=== PATIENT | female | born 1935 | race Caucasian/White ===

== ENCOUNTER 2023-11-01 17:56 | Inpatient (IN) | payer MEDICARE, MEDICAID ==
[~2023-11-01] VITALS: Ht 165.1 cm; Wt 64.4 kg
[2023-11-01 18:23] VITALS: BP 114/67; PULSE 84; RESP 20; TEMP 97.9; O2SAT 96
[2023-11-01 19:44] LABS: BASOPHILS % (AUTO) 0.3 % (0.0-2.0); EOSINOPHILS % (AUTO) 0.1 % (0.0-4.0); HEMOGLOBIN 12.5 g/dL (12.0-16.0); LYMPHOCYTES # (AUTO) 0.7 K/uL (2.5-16.5); LYMPHOCYTES % (AUTO) 9.4 % (20.5-51.1); MEAN CORPUSCULAR HEMOGLOBIN 32 pg (27-31); MEAN CORPUSCULAR HGB CONC 33 g/dL (33-37); MEAN CORPUSCULAR VOLUME 97.9 fL (80-94); MONOCYTES # (AUTO) 0.6 K/uL (0.8-1.0); MONOCYTES % (AUTO) 7.4 % (1.7-9.3); NEUTROPHILS # (AUTO) 6.5 K/uL (1.8-7.7); NEUTROPHILS % (AUTO) 82.8 % (42.2-75.2); PLATELET COUNT (AUTO) 225 K/uL (140-450); RED BLOOD CELL COUNT(AUTO) 3.88 MIL/uL (4.20-5.40); RED CELL DISTRIBUTION WIDTH 15.6 % (11.6-13.7); WHITE BLOOD COUNT (AUTO) 7.9 K/uL (4.8-10.8)
[2023-11-01] MEDS: NACL 0.9% 1,000 ML IV ONE (19:56)
[2023-11-01 20:30] LABS: INR 0.9 (0.8-1.2); PARTIAL THROMBOPLASTIN TIME 22.5 secs (22-35.6); PROTHROMBIN TIME 9.5 secs (10.8-13.4)
[2023-11-01 20:32] LABS: ANION GAP 15.7 (8-16); CALCIUM 8.5 mg/dL (8.5-10.1); CHLORIDE 99 mmol/L (98-107); GLUCOSE 137 mg/dL (74-106); POTASSIUM 3.7 mmol/L (3.5-5.1); SODIUM SERUM 137 mmol/L (136-145); UREA NITROGEN, BLOOD 22 mg/dL (7-18)
[2023-11-01 20:43] LABS: ALANINE AMINOTRANSFERASE 323 U/L (12-78); ALBUMIN 3.1 g/dL (3.4-5.0); ALKALINE PHOSPHATASE 124 U/L (50-136); ASPARTATE AMINOTRANSFERASE 438 U/L (15-37); BILIRUBIN,DIRECT 0.3 mg/dL (0.0-0.3); CREATINE KINASE, TOTAL 706 U/L (26-192); THYROID STIMULATING HORMONE 3.79 uIU/mL (0.34-3.74)
[2023-11-01 20:47] LABS: TOTAL BILIRUBIN 0.8 mg/dL (0.0-1.0)
[2023-11-01] MEDS ORDERED: cefTRIAXone 1,000 MG VIAL ONE (21:09)
[2023-11-01] MEDS ORDERED: LORazepam 1 MG TAB PO PRN (21:30)
[2023-11-01] MEDS ORDERED: ONDANSETRON 4 MG/2 ML VIAL IVP PRN (21:30)
[2023-11-01] MEDS ORDERED: MAG SULF 2000 MG/WATER PREMIX 50 ML IV PRN (21:35)
[2023-11-01] MEDS ORDERED: NITROGLYCERIN 0.4 MG TAB SL PRN (21:40)
[2023-11-01 21:46] LABS: LACTIC ACID 5.3 mmol/L (0.4-2.0)
[2023-11-01] MEDS ORDERED: HEPARIN PER PHARMACY MC PRN (21:50)
[2023-11-01] MEDS ORDERED: hePARIN / DEXT 5% PREMIX 250 ML IV ONE (21:50)
[2023-11-01 22:08] LABS: FLU A ANTIGEN negative (NEGATIVE); FLU B ANTIGEN NEGATIVE (NEGATIVE)
[2023-11-01] MEDS ORDERED: ASPIRIN 81 MG TAB.CHEW ONE (22:50)
[2023-11-01] MEDS ORDERED: AZITHROMYCIN 500 MG INJ VIAL IV ONE (22:51)
[2023-11-01] MEDS: NACL 0.9% 1,000 ML IV SCH (23:00)
[2023-11-01] MEDS: AZITHROMYCIN 500 MG in DEXTROSE 5% 250 ML IV ONE (23:00)
[2023-11-01] MEDS ORDERED: PRIM250T70 PO (23:11)
[2023-11-01] MEDS ORDERED: METO25TE2 PO (23:11)
[2023-11-01] MEDS ORDERED: LOSA-272 PO (23:11)
[2023-11-01] MEDS ORDERED: DULO30EC PO (23:11)
[2023-11-01] MEDS ORDERED: ATOR10TA PO (23:11)
[2023-11-01] MEDS ORDERED: LEVO88CA2 PO (23:11)
[2023-11-01 23:58] VITALS: PULSE 89; RESP 18; O2SAT 96
[2023-11-02 00:18] LABS: APPEARANCE,URINE CLEAR (CLEAR); BILIRUBIN,URINE 1+ (NEGATIVE); BLOOD, URINE TRACE-I (NEGATIVE); COLOR,URINE YELLOW (YELLOW); LEUKOCYTE ESTERASE ,URINE TRACE (NEGATIVE); NITRITE, URINE NEGATIVE (NEGATIVE); PROTEIN,URINE TRACE (NEGATIVE); UGLUCOSE NEGATIVE (NEGATIVE)
[2023-11-02 00:19] LABS: ICTOTEST POSITIVE (NEGATIVE)
[2023-11-02 00:22] LABS: BACTERIA,URINE >30 (MANY) /HPF (None Seen); MUCUS,URINE 1+ /LPF (None Seen); SQUAMOUS EPITHELIAL CELL,UR 4-10 (MOD) /LPF (0-3 (FEW)); WBC,URINE >25 (MANY) /HPF (0-5)
[2023-11-02] MEDS: hePARIN / DEXT 5% PREMIX 250 ML IV SCH (00:50)
[2023-11-02] MEDS: AMPICILLIN/SULBACTAM 3 GM VIAL ONE ×2 (00:52→06:03)
[2023-11-02] MEDS: AMPICILLIN/SULBACTAM 3 GM in NACL 0.9% 100 ML IV SCH (01:55)
[2023-11-02 04:00] VITALS: BP 101/55; PULSE 85; RESP 18; TEMP 98.5; O2SAT 96
[2023-11-02 07:59] LABS: BASOPHILS % (AUTO) 0.3 % (0.0-2.0); HEMATOCRIT 31.6 % (36-48); HEMOGLOBIN 10.9 g/dL (12.0-16.0); LYMPHOCYTES # (AUTO) 1.7 K/uL (2.5-16.5); LYMPHOCYTES % (AUTO) 19.2 % (20.5-51.1); MEAN CORPUSCULAR HEMOGLOBIN 34 pg (27-31); MEAN CORPUSCULAR HGB CONC 35 g/dL (33-37); MEAN CORPUSCULAR VOLUME 97.2 fL (80-94); MONOCYTES # (AUTO) 1.3 K/uL (0.8-1.0); NEUTROPHILS # (AUTO) 5.8 K/uL (1.8-7.7); NEUTROPHILS % (AUTO) 65.5 % (42.2-75.2); PLATELET COUNT (AUTO) 164 K/uL (140-450); RED BLOOD CELL COUNT(AUTO) 3.25 MIL/uL (4.20-5.40); RED CELL DISTRIBUTION WIDTH 15.6 % (11.6-13.7); WHITE BLOOD COUNT (AUTO) 8.9 K/uL (4.8-10.8)
[2023-11-02 08:00] VITALS: BP 103/58; PULSE 85; RESP 18; TEMP 98.6; O2SAT 96
[2023-11-02 08:21] LABS: ALANINE AMINOTRANSFERASE 241 U/L (12-78); ALBUMIN 2.7 g/dL (3.4-5.0); ALKALINE PHOSPHATASE 109 U/L (50-136); ANION GAP 9.8 (8-16); ASPARTATE AMINOTRANSFERASE 311 U/L (15-37); CALCIUM 7.9 mg/dL (8.5-10.1); CARBON DIOXIDE 30.8 mmol/L (21-32); CHLORIDE 101 mmol/L (98-107); CREATININE 1.1 mg/dL (0.6-1.3); GLUCOSE 111 mg/dL (74-106); POTASSIUM 3.6 mmol/L (3.5-5.1); SODIUM SERUM 138 mmol/L (136-145); TOTAL BILIRUBIN 0.7 mg/dL (0.0-1.0); TOTAL PROTEIN, SERUM 5.6 g/dL (6.4-8.2); UREA NITROGEN, BLOOD 20 mg/dL (7-18)
[2023-11-02] MEDS: ASPIRIN 81 MG TAB.CHEW PO ONE (08:28)
[2023-11-02] MEDS: METOPROLOL 25 MG TAB PO SCH (08:29)
[2023-11-02] MEDS: DOCUSATE SODIUM 100 MG GELCAP PO SCH (08:29)
[2023-11-02] MEDS: LOSARTAN 25 MG TAB PO SCH (08:29)
[2023-11-02] MEDS: FAMOTIDINE 20 MG TAB PO SCH (08:29)
[2023-11-02 16:00] VITALS: BP 103/67; PULSE 83; RESP 18; TEMP 98.7; O2SAT 96
[2023-11-02 20:00] VITALS: BP 114/63; PULSE 98; RESP 18; TEMP 97.4; O2SAT 98
[2023-11-02] MEDS: SIMVASTATIN 20 MG TAB PO SCH (21:07)
[2023-11-03 04:00] VITALS: BP 125/74; PULSE 98; RESP 19; TEMP 97.4; O2SAT 98
[2023-11-03 07:26] LABS: BASOPHILS % (AUTO) 0.4 % (0.0-2.0); HEMATOCRIT 31.8 % (36-48); HEMOGLOBIN 10.8 g/dL (12.0-16.0); LYMPHOCYTES # (AUTO) 1.7 K/uL (2.5-16.5); LYMPHOCYTES % (AUTO) 21.6 % (20.5-51.1); MEAN CORPUSCULAR HEMOGLOBIN 33 pg (27-31); MEAN CORPUSCULAR HGB CONC 34 g/dL (33-37); MEAN CORPUSCULAR VOLUME 97.8 fL (80-94); MONOCYTES % (AUTO) 12.2 % (1.7-9.3); NEUTROPHILS # (AUTO) 5.2 K/uL (1.8-7.7); NEUTROPHILS % (AUTO) 65.8 % (42.2-75.2); PLATELET COUNT (AUTO) 169 K/uL (140-450); RED BLOOD CELL COUNT(AUTO) 3.25 MIL/uL (4.20-5.40); RED CELL DISTRIBUTION WIDTH 15.3 % (11.6-13.7); WHITE BLOOD COUNT (AUTO) 7.9 K/uL (4.8-10.8)
[2023-11-03 07:46] LABS: ALANINE AMINOTRANSFERASE 154 U/L (12-78); ALBUMIN 2.4 g/dL (3.4-5.0); ALKALINE PHOSPHATASE 91 U/L (50-136); ANION GAP 10.2 (8-16); ASPARTATE AMINOTRANSFERASE 183 U/L (15-37); CALCIUM 7.7 mg/dL (8.5-10.1); CHLORIDE 101 mmol/L (98-107); CREATININE 0.9 mg/dL (0.6-1.3); GLUCOSE 86 mg/dL (74-106); POTASSIUM 3.2 mmol/L (3.5-5.1); SODIUM SERUM 136 mmol/L (136-145); TOTAL BILIRUBIN 0.4 mg/dL (0.0-1.0); TOTAL PROTEIN, SERUM 5.4 g/dL (6.4-8.2); UREA NITROGEN, BLOOD 19 mg/dL (7-18)
[2023-11-03 08:00] VITALS: BP_SYST 114; BP_SYST 138; BP_DIAS 70; BP_DIAS 77; PULSE 104; PULSE 80; RESP 18; RESP 20; TEMP 97.6; TEMP 97.8; O2SAT 92; O2SAT 96
[2023-11-03] MEDS: ASPIRIN 81 MG TAB.CHEW PO SCH (09:56)
[2023-11-03] MEDS: MORPHINE SULFATE 2 MG/ML SYR IVP PRN (14:55)
[2023-11-03 16:00] VITALS: BP 115/68; PULSE 86; RESP 18; TEMP 97.6; O2SAT 92
[2023-11-03] MEDS: POTASSIUM CHLORIDE 10 MEQ TABER PO PRN (18:30)
[2023-11-03 20:00] VITALS: BP 111/66; PULSE 88; RESP 18; TEMP 98; O2SAT 93
[2023-11-03 20:23] VITALS: PULSE 88
[2023-11-03 21:39] VITALS: PULSE 88; RESP 18; O2SAT 93
[2023-11-04 04:00] VITALS: BP 110/60; PULSE 82; RESP 18; TEMP 97.5; O2SAT 93
[2023-11-04 06:44] LABS: BASOPHILS % (AUTO) 0.2 % (0.0-2.0); EOSINOPHILS % (AUTO) 0.1 % (0.0-4.0); HEMATOCRIT 32.9 % (36-48); HEMOGLOBIN 11.1 g/dL (12.0-16.0); LYMPHOCYTES # (AUTO) 2.4 K/uL (2.5-16.5); LYMPHOCYTES % (AUTO) 27.7 % (20.5-51.1); MEAN CORPUSCULAR HEMOGLOBIN 33 pg (27-31); MEAN CORPUSCULAR HGB CONC 34 g/dL (33-37); MEAN CORPUSCULAR VOLUME 96.8 fL (80-94); MONOCYTES # (AUTO) 0.9 K/uL (0.8-1.0); MONOCYTES % (AUTO) 9.9 % (1.7-9.3); NEUTROPHILS # (AUTO) 5.4 K/uL (1.8-7.7); NEUTROPHILS % (AUTO) 62.1 % (42.2-75.2); PLATELET COUNT (AUTO) 188 K/uL (140-450); RED CELL DISTRIBUTION WIDTH 15.3 % (11.6-13.7); WHITE BLOOD COUNT (AUTO) 8.7 K/uL (4.8-10.8)
[2023-11-04 07:18] LABS: ALANINE AMINOTRANSFERASE 126 U/L (12-78); ALBUMIN 2.3 g/dL (3.4-5.0); ALKALINE PHOSPHATASE 96 U/L (50-136); ANION GAP 9.7 (8-16); ASPARTATE AMINOTRANSFERASE 137 U/L (15-37); CALCIUM 7.7 mg/dL (8.5-10.1); CARBON DIOXIDE 29.5 mmol/L (21-32); CHLORIDE 101 mmol/L (98-107); CREATININE 0.8 mg/dL (0.6-1.3); GLUCOSE 98 mg/dL (74-106); POTASSIUM 3.2 mmol/L (3.5-5.1); SODIUM SERUM 137 mmol/L (136-145); TOTAL BILIRUBIN 0.5 mg/dL (0.0-1.0); TOTAL PROTEIN, SERUM 5.5 g/dL (6.4-8.2); UREA NITROGEN, BLOOD 15 mg/dL (7-18)
[2023-11-04 08:00] VITALS: PULSE 104; RESP 18; O2SAT 93
[2023-11-04 12:00] VITALS: BP 110/60; PULSE 104; RESP 18; TEMP 97.5; O2SAT 93
[2023-11-04 20:00] VITALS: PULSE 121; RESP 18; O2SAT 93
[2023-11-04 21:30] VITALS: BP 116/72; PULSE 121; RESP 18; TEMP 97.6; O2SAT 93
[2023-11-04] MEDS: ZOLPIDEM 5 MG TAB PO PRN (22:18)
[2023-11-05 04:00] VITALS: BP 110/80; PULSE 120; RESP 18; TEMP 97.5; O2SAT 93
[2023-11-05 07:08] LABS: BASOPHILS % (AUTO) 0.3 % (0.0-2.0); EOSINOPHILS % (AUTO) 0.2 % (0.0-4.0); HEMATOCRIT 30.7 % (36-48); HEMOGLOBIN 10.4 g/dL (12.0-16.0); LYMPHOCYTES # (AUTO) 1.4 K/uL (2.5-16.5); LYMPHOCYTES % (AUTO) 23.8 % (20.5-51.1); MEAN CORPUSCULAR HEMOGLOBIN 33 pg (27-31); MEAN CORPUSCULAR HGB CONC 34 g/dL (33-37); MEAN CORPUSCULAR VOLUME 96.7 fL (80-94); MONOCYTES % (AUTO) 16.5 % (1.7-9.3); NEUTROPHILS # (AUTO) 3.6 K/uL (1.8-7.7); NEUTROPHILS % (AUTO) 59.2 % (42.2-75.2); PLATELET COUNT (AUTO) 200 K/uL (140-450); RED BLOOD CELL COUNT(AUTO) 3.17 MIL/uL (4.20-5.40); RED CELL DISTRIBUTION WIDTH 15.5 % (11.6-13.7)
[2023-11-05 07:19] LABS: ALANINE AMINOTRANSFERASE 130 U/L (12-78); ALBUMIN 2.3 g/dL (3.4-5.0); ALKALINE PHOSPHATASE 108 U/L (50-136); ANION GAP 8.9 (8-16); ASPARTATE AMINOTRANSFERASE 125 U/L (15-37); CALCIUM 7.6 mg/dL (8.5-10.1); CARBON DIOXIDE 28.8 mmol/L (21-32); CHLORIDE 103 mmol/L (98-107); CREATININE 0.8 mg/dL (0.6-1.3); GLUCOSE 109 mg/dL (74-106); POTASSIUM 3.7 mmol/L (3.5-5.1); SODIUM SERUM 137 mmol/L (136-145); TOTAL BILIRUBIN 0.5 mg/dL (0.0-1.0); TOTAL PROTEIN, SERUM 5.3 g/dL (6.4-8.2); UREA NITROGEN, BLOOD 13 mg/dL (7-18)
[2023-11-05 08:00] VITALS: PULSE 68; RESP 18; O2SAT 96
[2023-11-05] MEDS: ENOXAPARIN 30 MG/0.3 ML SYR SUBQ SCH (09:12)
[2023-11-05 20:00] VITALS: BP 131/78; PULSE 68; PULSE 91; RESP 17; RESP 18; TEMP 97.9; O2SAT 95; O2SAT 98
[2023-11-05 22:30] VITALS: PULSE 91
[2023-11-06 04:00] VITALS: BP 119/79; PULSE 74; RESP 18; TEMP 98; O2SAT 94
[2023-11-06 07:25] LABS: BASOPHILS % (AUTO) 0.4 % (0.0-2.0); EOSINOPHILS # (AUTO) 0.1 K/uL (0-0.4); EOSINOPHILS % (AUTO) 0.9 % (0.0-4.0); HEMATOCRIT 30.9 % (36-48); HEMOGLOBIN 10.6 g/dL (12.0-16.0); LYMPHOCYTES # (AUTO) 1.7 K/uL (2.5-16.5); LYMPHOCYTES % (AUTO) 27.5 % (20.5-51.1); MEAN CORPUSCULAR HEMOGLOBIN 33 pg (27-31); MEAN CORPUSCULAR HGB CONC 34 g/dL (33-37); MEAN CORPUSCULAR VOLUME 96.8 fL (80-94); MONOCYTES # (AUTO) 1.1 K/uL (0.8-1.0); MONOCYTES % (AUTO) 17.7 % (1.7-9.3); NEUTROPHILS # (AUTO) 3.3 K/uL (1.8-7.7); NEUTROPHILS % (AUTO) 53.5 % (42.2-75.2); PLATELET COUNT (AUTO) 212 K/uL (140-450); RED BLOOD CELL COUNT(AUTO) 3.19 MIL/uL (4.20-5.40); RED CELL DISTRIBUTION WIDTH 15.5 % (11.6-13.7); WHITE BLOOD COUNT (AUTO) 6.2 K/uL (4.8-10.8)
[2023-11-06 07:48] LABS: ALANINE AMINOTRANSFERASE 157 U/L (12-78); ALBUMIN 2.3 g/dL (3.4-5.0); ALKALINE PHOSPHATASE 132 U/L (50-136); ANION GAP 9.9 (8-16); ASPARTATE AMINOTRANSFERASE 146 U/L (15-37); CALCIUM 7.7 mg/dL (8.5-10.1); CARBON DIOXIDE 29.9 mmol/L (21-32); CHLORIDE 101 mmol/L (98-107); CREATININE 0.9 mg/dL (0.6-1.3); GLUCOSE 116 mg/dL (74-106); POTASSIUM 3.8 mmol/L (3.5-5.1); SODIUM SERUM 137 mmol/L (136-145); TOTAL BILIRUBIN 0.5 mg/dL (0.0-1.0); TOTAL PROTEIN, SERUM 5.6 g/dL (6.4-8.2); UREA NITROGEN, BLOOD 17 mg/dL (7-18)
[2023-11-06 08:00] VITALS: PULSE 68; RESP 18; O2SAT 97
[2023-11-06 12:00] VITALS: BP 119/79; PULSE 68; RESP 18; TEMP 98; O2SAT 97
[2023-11-06 16:00] VITALS: BP 103/61; PULSE 77; RESP 18; TEMP 97.8; O2SAT 96
[2023-11-06 20:00] VITALS: BP 117/86; PULSE 69; PULSE 75; RESP 18; TEMP 97.7; O2SAT 95; O2SAT 98
[2023-11-06] MEDS: ACETAMINOPHEN 325 MG TAB PO PRN (22:19)
[2023-11-07 04:00] VITALS: BP 103/61; PULSE 74; RESP 18; TEMP 97.1; O2SAT 97
[2023-11-07 06:50] LABS: BASOPHILS % (AUTO) 0.5 % (0.0-2.0); EOSINOPHILS % (AUTO) 0.6 % (0.0-4.0); HEMATOCRIT 31.4 % (36-48); HEMOGLOBIN 10.5 g/dL (12.0-16.0); LYMPHOCYTES # (AUTO) 1.9 K/uL (2.5-16.5); LYMPHOCYTES % (AUTO) 28.8 % (20.5-51.1); MEAN CORPUSCULAR HEMOGLOBIN 33 pg (27-31); MEAN CORPUSCULAR HGB CONC 34 g/dL (33-37); MEAN CORPUSCULAR VOLUME 98.3 fL (80-94); MONOCYTES % (AUTO) 15.4 % (1.7-9.3); NEUTROPHILS # (AUTO) 3.7 K/uL (1.8-7.7); NEUTROPHILS % (AUTO) 54.7 % (42.2-75.2); PLATELET COUNT (AUTO) 258 K/uL (140-450); RED BLOOD CELL COUNT(AUTO) 3.19 MIL/uL (4.20-5.40); RED CELL DISTRIBUTION WIDTH 15.6 % (11.6-13.7); WHITE BLOOD COUNT (AUTO) 6.7 K/uL (4.8-10.8)
[2023-11-07 07:05] VITALS: PULSE 68
[2023-11-07 07:06] LABS: ALANINE AMINOTRANSFERASE 189 U/L (12-78); ALBUMIN 2.4 g/dL (3.4-5.0); ALKALINE PHOSPHATASE 144 U/L (50-136); ANION GAP 11.8 (8-16); ASPARTATE AMINOTRANSFERASE 173 U/L (15-37); CALCIUM 7.8 mg/dL (8.5-10.1); CARBON DIOXIDE 25.7 mmol/L (21-32); CHLORIDE 100 mmol/L (98-107); CREATININE 1.1 mg/dL (0.6-1.3); GLUCOSE 118 mg/dL (74-106); POTASSIUM 3.5 mmol/L (3.5-5.1); SODIUM SERUM 134 mmol/L (136-145); TOTAL BILIRUBIN 0.4 mg/dL (0.0-1.0); TOTAL PROTEIN, SERUM 5.7 g/dL (6.4-8.2); UREA NITROGEN, BLOOD 19 mg/dL (7-18)
[2023-11-07 08:00] VITALS: BP 109/70; PULSE 56; RESP 20; TEMP 97.7; O2SAT 99
[2023-11-07] MEDS ORDERED: METO25TA PO (14:17)
[2023-11-07] MEDS ORDERED: ASPI-1822 PO (14:17)
[2023-11-07] MEDS ORDERED: SIMV-372 PO (14:17)
[2023-11-07] MEDS ORDERED: LOSA-272 PO (14:17)
[2023-11-07] MEDS ORDERED: AMOX-999 PO (14:21)
[2023-11-07 14:54] VITALS: BP 109/70; PULSE 56; RESP 20; TEMP 97.7
[2023-11-07] MEDS ORDERED: SIMV-31 PO (15:16)
== END 2023-11-07 17:55 | disposition home health service (06) | DRG 70 ==
LOC: MED 17:56 → MMU 21:28 → MTU 21:51
PROVIDERS: ADMIT Student in an Organized Health Care Education/Training Program; ATTEND Student in an Organized Health Care Education/Training Program
DX: G93.41 Metabolic encephalopathy (principal); E43 Unspecified severe protein-calorie malnutrition; I21.A1 Myocardial infarction type 2; N39.0 Urinary tract infection, site not specified; E87.20 Acidosis, unspecified; Z66 Do not resuscitate; Z20.822 Contact with and (suspected) exposure to COVID-19; I10 Essential (primary) hypertension; E78.5 Hyperlipidemia, unspecified; E03.9 Hypothyroidism, unspecified; F03.90 Unspecified dementia, unspecified severity, without behavioral disturbance, psychotic disturbance, mood disturbance, and anxiety; Z79.899 Other long term (current) drug therapy; Z68.23 Body mass index [BMI] 23.0-23.9, adult
CPT/HCPCS: 36415; 71045; 80048; 80053; 80076; 81001; 82550; 82553; 83605; 83880; 84443; 84484; 85025; 85610; 85730; 87040; 87081; 87086; 93005; 96361; 96365; 96367; 97110; 97112; 97116; 97163-GP; 97530; 99291; J0295; J0456; J0696; J1644; J1650; J2270; Q0092